=== PATIENT | male | born 1975 | race African-American/Black ===

== ENCOUNTER 2018-09-19 19:15 | Emergency (ER) | payer OTHER ==
[~2018-09-19] VITALS: Ht 170.2 cm; Wt 68.0 kg
[2018-09-19] MEDS ORDERED: NKM (19:26)
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
[2018-09-19 19:45] VITALS: BP 131/77
[2018-09-19] MEDS ORDERED: Lidocaine 2% Visc 15ml soln ORAL ONE (20:00)
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
[2018-09-19] MEDS ORDERED: ZANTAC150 MG ORAL (20:35)
--- NOTE | 2018-09-19 20:40 | NUR ---
ER DISCHARGE NOTE: Patient is cleared to be discharged per ERMD, pt is aox4, on room air, with stable vital signs. pt was given dc and prescription instructions, pt was able to verbalize understanding, pt id band removed . pt is able to ambulate with steady gait. pt took all belongings.
[2018-09-19 20:42] VITALS: BP 131/77
--- NOTE | 2018-09-20 10:01 | Diagnostic Imaging Report ---
Indication: Abdominal pain Technique: Supine view of the abdomen Comparison: none Findings: Bowel gas pattern is unremarkable. No unusual masses or calcifications. Impression: No acute process
== END 2018-09-19 20:40 | disposition home or self-care (01) ==
LOC: EMR 19:38
DX: S30.1XXA Contusion of abdominal wall, initial encounter (principal); W50.0XXA Accidental hit or strike by another person, initial encounter; Y92.9 Unspecified place or not applicable; Y99.0 Civilian activity done for income or pay
CPT/HCPCS: 74018; 99283